=== PATIENT | female | born 1975 | race Caucasian/White ===

== ENCOUNTER → 2024-05-20 10:40 | Outpatient (REF) | payer OTHER, SELFPAY ==
--- NOTE | 2024-05-20 14:30 | EEG.RPT ---
Electroencephalogram Report
Recording
Date of EE05/20/24
Type of EEG: Routine
Length of EEG recordin mins
Done with Video Recording: Yes
Patient Status: Outpatient
Recording Conditions: Awake
Hyperventilation Performed: Yes
Photic Stimulation Performed: Yes
Report
METHODS
A 21 channel digitized electroencephalogram was performed at [facility]. The 10/20 international system of electrode placement was used. In addition to EEG, the patient was monitored for EKG. The duration of the recording was 65 minutes.
BACKGROUND
During the awake state, with the eyes closed, the background consisted of a normal amplitude, 11 Hertz posterior reactive rhythm that attenuated appropriately with eye opening. Beta activity was distributed diffusely with an anterior predominance.
There was a normal anterior-posterior voltage gradient. With eye opening the background activity changed to a low voltage mixture of alpha, beta, and occasional theta range frequencies. There were no significant asymmetries of background activity
noted.
HYPERVENTILATION
Hyperventilation resulted in diffuse slowing of the background activity without appearance of abnormal activity.
PHOTIC STIMULATION
Photic stimulation using a step-camacho increase in photic frequency varying from 1-31 Hertz resulted in no driving responses but no appearance of abnormal activity.
ABNORMAL EEG ACTIVITY
None
CLINICAL EVENTS
None
INTERPRETATION AND CLINICAL CORRELATION
This EEG is normal during the awake state as well as during the activation procedures of hyperventilation and photic stimulation. No seizures were noted during the recording. A normal EEG, in itself, does not rule out a diagnosis of epilepsy. If
clinical suspicion for seizure persists, a sleep-deprived and/or prolonged recording may be warranted.
== END ==
LOC: EEG 10:40
PROVIDERS: ATTENDING PHYSICIAN Psychiatry & Neurology Neurology; FAMILY PHYSICIAN Family Medicine
DX: G40.409 Other generalized epilepsy and epileptic syndromes, not intractable, without status epilepticus (principal); G43.011 Migraine without aura, intractable, with status migrainosus; R41.0 Disorientation, unspecified; R47.89 Other speech disturbances
CPT/HCPCS: 95813

== ENCOUNTER → 2024-05-23 08:19 | Outpatient (REF) | payer OTHER, SELFPAY | LOC: MRI 08:19 | PROVIDERS: ATTENDING PHYSICIAN Psychiatry & Neurology Neurology; FAMILY PHYSICIAN Family Medicine | DX: G40.409 Other generalized epilepsy and epileptic syndromes, not intractable, without status epilepticus (principal); G43.011 Migraine without aura, intractable, with status migrainosus; R41.0 Disorientation, unspecified; R47.89 Other speech disturbances | CPT/HCPCS: 70553; A9575 ==

== ENCOUNTER → 2024-06-15 08:44 | Outpatient (REF) | payer OTHER, SELFPAY ==
--- NOTE | 2024-06-16 16:45 | EEG.RPT ---
Electroencephalogram Report
Recording
Date of EE06/15/24
Type of EEG: Ambulatory
Length of EEG recordin hours 23 minutes
Done with Video Recording: No
Patient Status: Outpatient
Recording Conditions: Awake, Drowsy and Asleep
Hyperventilation Performed: Yes
Photic Stimulation Performed: Yes
Report
24 HOUR AMBULATORY EEG SUMMARY
24 HOUR AMBULATORY EEG CONCLUSION(S):
Unremarkable EEG for age
CLINICAL CORRELATION:
A normal EEG may not rule out a diagnosis of epilepsy.
The patient�s logs did not indicate clinical symptoms.
Consideration for multiple day monitoring may be given.
Clinical correlation is advised.
METHODS:
A 21 channel digitized electroencephalogram (EEG) was initiated in the [facility]. The patient wore the device outside of the laboratory and returned after 24 hours for electrode and recorder removal. The 10/20
international system of electrode placement was used with bipolar electrode montage recorded. ECG was monitored. The [employer] quantitative EEG analysis system was utilized.
IMPRESSION(S):
Quality
Fair becoming poor by end of study
Background
Maximal wakefulness: alpha
There was a normal anterior-posterior voltage gradient. With eye opening the background activity changed. No significant asymmetries of background activity noted.
Sleep
Drowsiness was suggested by slowing of the background rhythms
Stage I sleep was recorded
Stage 2 sleep was recorded
ECG
Unremarkable
== END ==
LOC: EEG 08:44
PROVIDERS: ATTENDING PHYSICIAN Psychiatry & Neurology Neurology; FAMILY PHYSICIAN Family Medicine
DX: G40.409 Other generalized epilepsy and epileptic syndromes, not intractable, without status epilepticus (principal)
CPT/HCPCS: 95708